=== PATIENT | female | born 1995 | race Caucasian/White ===

== ENCOUNTER 2019-05-19 11:03 | Outpatient (CLI) | payer MEDICAID, SELFPAY | END 2019-05-19 11:23 | PROVIDERS: Visit Provider Advanced Practice Midwife | DX: O76 Abnormality in fetal heart rate and rhythm complicating labor and delivery (principal) | CPT/HCPCS: 59025 ==

== ENCOUNTER 2019-06-27 14:47 | Outpatient (REF) | payer MEDICAID, SELFPAY ==
[2019-06-27 16:00] LABS: *AMPHETAMINES SCREEN URINE Negative (Negative); *BARBITURATES SCREEN URINE Negative (Negative); *BENZODIAZEPINES SCREEN URINE Negative (Negative); Cannabinoids THC Negative (Negative); Cocaine Screen,Urine Negative (Negative); METHADONE URINE SCREEN Negative (Negative); OPIATES URINE SCREEN Negative (Negative)
[2019-06-27 16:17] LABS: Tricyclic Antidepressants Negative (Negative)
[2019-07-07 13:19] LABS: Buprenorphine Negative; Norbuprenorphine Negative
== END 2019-06-27 15:07 ==
LOC: LBN 14:47
PROVIDERS: Advanced Practice Midwife; Visit Provider Advanced Practice Midwife
DX: Z34.93 Encounter for supervision of normal pregnancy, unspecified, third trimester (principal)
CPT/HCPCS: 80307

== ENCOUNTER 2019-07-04 15:10 | Outpatient (CLI) | payer MEDICAID, SELFPAY ==
[2019-07-04 15:52] LABS: HCT 38.6 % (36.0-46.0); Mean Corp. HGB Concentration 33.7 g/dL (32.0-36.0); Mean Corpuscular Hemoglobin 27.2 pg (27.0-33.0); Mean Corpuscular Volume 80.8 fL (80-95); Mean Platelet Volume 9.8 fL (8.0-11.0); Platelet Count 222 x1000/uL (130-400); RBC 4.78 m/cumm (4.00-5.20); RBC Distribution Width 12.9 % (11.7-14.6); White Blood Cell Count 9.65 k/cumm (4.4-10.8)
[2019-07-06 10:12] LABS: Syphilis Total Ab w/Reflex Nonreactive (Nonreactive)
[2019-07-07 10:42] LABS: Varicella IgG Antibody Positive
[2019-07-07 10:47] LABS: Hepatitis C Ab w Rflx HCV PCR Negative (NEGAT)
== END 2019-07-04 15:30 ==
PROVIDERS: Visit Provider Advanced Practice Midwife
DX: Z34.93 Encounter for supervision of normal pregnancy, unspecified, third trimester (principal); Z36.85 Encounter for antenatal screening for Streptococcus B; Z11.59 Encounter for screening for other viral diseases; Z01.84 Encounter for antibody response examination
CPT/HCPCS: 36415; 85027; 86787; 86803; 86850; 86900; 86901; 86780; 87081

== ENCOUNTER 2019-07-16 15:34 | Outpatient (CLI) | payer MEDICAID, SELFPAY ==
[2019-07-16 16:14] LABS: HCT 38.5 % (36.0-46.0); HGB 12.7 g/dL (12.0-15.5); Mean Corpuscular Hemoglobin 26.2 pg (27.0-33.0); Mean Corpuscular Volume 79.5 fL (80-95); Platelet Count 231 x1000/uL (130-400); RBC 4.84 m/cumm (4.00-5.20); RBC Distribution Width 12.8 % (11.7-14.6)
[2019-07-16 16:44] LABS: COMMENT (LAB VIEW ONLY) 102.84 mg/dL; PROTEIN 19.2 mg/dL; Prot/Crea Ur Ratio 0.18
[2019-07-16 17:46] LABS: ALT 14 U/L (14-59); AST 12 U/L (15-37); Albumin 2.7 g/dL (3.4-5.0); Alkaline Phosphatase 165 U/L (46-116); Anion Gap 11.6 mmol/L (3-11); BUN 10 mg/dL (7-18); Bilirubin, Total 0.2 mg/dL (0.2-1.0); CO2 23.4 mmol/L (21.0-32.0); CREATININE 0.54 mg/dL (0.55-1.02); Calcium 9.4 mg/dL (8.5-10.1); Chloride 103 mmol/L (98-107); Glucose 111 mg/dL (70-100); Sodium 138 mmol/L (136-145); Total Protein 6.4 g/dL (6.4-8.2); Uric Acid 4.2 mg/dL (2.6-6.0)
== END 2019-07-16 15:54 ==
PROVIDERS: Visit Provider Advanced Practice Midwife
DX: O14.93 Unspecified pre-eclampsia, third trimester (principal)
CPT/HCPCS: 36415; 80053; 85027; 82565; 84156; 84550

== ENCOUNTER 2019-07-21 15:05 | Outpatient (CLI) | payer MEDICAID, SELFPAY | END 2019-07-21 15:25 | PROVIDERS: Visit Provider Advanced Practice Midwife | DX: O36.8130 Decreased fetal movements, third trimester, not applicable or unspecified (principal); Z3A.39 39 weeks gestation of pregnancy | CPT/HCPCS: 59025 ==

== ENCOUNTER 2019-07-25 18:34 | Inpatient (IN) | payer MEDICAID, SELFPAY ==
[2019-07-25 20:05] LABS: ROM Plus Positive
[2019-07-25 20:16] LABS: HCT 38.3 % (36.0-46.0); HGB 12.7 g/dL (12.0-15.5); Mean Corp. HGB Concentration 33.2 g/dL (32.0-36.0); Mean Corpuscular Hemoglobin 26.3 pg (27.0-33.0); Mean Corpuscular Volume 79.5 fL (80-95); Mean Platelet Volume 10.2 fL (8.0-11.0); Platelet Count 216 x1000/uL (130-400); RBC 4.82 m/cumm (4.00-5.20); White Blood Cell Count 9.75 k/cumm (4.4-10.8)
[2019-07-25] MEDS: miSOPROStol 25 MCG TAB 50 MCG PO (20:21)
[2019-07-26] MEDS: Zolpidem 5 MG TAB 10 MG PO (02:03)
[2019-07-26] MEDS: Normal Saline Flush 10 ML SYR IVP ×2 (10:27→16:49)
[2019-07-26] MEDS: Lactated Ringers 1,000 ML 125 ML IV ×3 (12:25→17:58)
[2019-07-26] MEDS: FentaNYL/ROPIvacaine 2 mcg/ml and 0.1% 200 ML CADD Cassette EP (16:13)
[2019-07-26] MEDS: Ondansetron 4 MG/2 ML VIAL IVP (16:48)
[2019-07-26] MEDS: Terbutaline 1 MG/ML VIAL 0.25 MG SC (17:16)
[2019-07-26] MEDS: Sodium Citrate 30 ML CUP (17:30)
[2019-07-26] MEDS: Bupivacaine 0.25% Pres-Free 30 ML VIAL (18:30)
--- NOTE | 2019-07-26 18:53 | W.PM.PROGNOT ---
Date of Service Date of service: 07/26/19 Time of Service: 18:53 Assessment and Plan Assessment and plan (1) Non-reassuring electronic monitoring tracing: Status: Acute Assessment and plan: Consent for surgery was obtained. Risks reviewed with the patient. To OR for urgent primary section. Subjective Subjective Interval history since last seen: I was called to the bedside to evaluate the patient for a non-reassuring tracing. Per midwive's exam cx was 6 cm in dilatation with thick meconium. On review the tracing showed recurrent late decelerations to 90s with a 5 minute period of bradycardia with incomplete recovery. Terbutaline was administered with a subsequent heart rate of 150 with loss of variability and continued recurrent late decelerations. Urgent section was called. The patient was consented for surgery. Objective Objective Clinical Data: Abnormal lab results 07/25/19 Range/Units 20:05 MCV 79.5 L (80-95) fL MCH 26.3 L (27.0-33.0) pg Intake & Output 07/25/19 07/26/19 07/26/19 23:59 11:59 23:59 Intake Total 2191.667 / 2191.667 Output Total 825 / 825 Balance 1366.667 / 1366.667 Weight 175 lb Intake: IV 2191.667 / 2191.667 Output: Urine 225 / 225 Estimated Blood Loss 600 / 600 Other: Urine Color Yellow Urine Appearance Clear Laboratory Results WBC 9.75 k/cumm (4.4-10.8) 07/25/19 20:05 RBC 4.82 m/cumm (4.00-5.20) 07/25/19 20:05 Hgb 12.7 g/dL (12.0-15.5) 07/25/19 20:05 Hct 38.3 % (36.0-46.0) 07/25/19 20:05 MCV 79.5 fL (80-95) L 07/25/19 20:05 MCH 26.3 pg (27.0-33.0) L 07/25/19 20:05 MCHC 33.2 g/dL (32.0-36.0) 07/25/19 20:05 RDW 13.0 % (11.7-14.6) 07/25/19 20:05 Plt Count 216 x1000/uL (130-400) 07/25/19 20:05 MPV 10.2 fL (8.0-11.0) 07/25/19 20:05 Membranes Rupture Positive 07/25/19 19:40 Patient ABO/Rh A Positive 07/25/19 20:05 Antibody Screen Negative 07/25/19 20:05
[2019-07-26] MEDS: NALBUPHINE 5 MG in Normal Saline 50 ML 100 MG IVPB (19:40)
[2019-07-27] MEDS: Ketorolac 30 MG/ML VIAL IVP ×3 (00:14→11:40)
[2019-07-27] MEDS: Lactated Ringers 1,000 ML 120 ML IV (03:19)
[2019-07-27 07:23] LABS: HGB 10.8 g/dL (12.0-15.5); Mean Corp. HGB Concentration 32.7 g/dL (32.0-36.0); Mean Corpuscular Hemoglobin 26.2 pg (27.0-33.0); Mean Corpuscular Volume 80.1 fL (80-95); Mean Platelet Volume 10.2 fL (8.0-11.0); Platelet Count 209 x1000/uL (130-400); RBC 4.12 m/cumm (4.00-5.20); RBC Distribution Width 12.9 % (11.7-14.6); White Blood Cell Count 16.81 k/cumm (4.4-10.8)
--- NOTE | 2019-07-27 08:52 | W.PM.PROGNOT ---
Date of Service Date of service: 07/27/19 Time of Service: 08:52 Assessment and Plan Assessment and plan (1) Non-reassuring electronic monitoring tracing: Status: Acute Assessment and plan: Doing well. Continue routine postoperative care. Remove Fields today. May shower this evening and remove dressing at that point. (2) Status post emergency section: Status: Acute Subjective Subjective Interval history since last seen: Doing well. Pain well controlled. Not yet ambulatory. Tolerating regular diet. Minimal lochia. Objective Objective Clinical Data: Abnormal lab results 07/27/19 Range/Units 07:08 WBC 16.81 H (4.4-10.8) k/cumm Hgb 10.8 L (12.0-15.5) g/dL Hct 33.0 L (36.0-46.0) % MCH 26.2 L (27.0-33.0) pg Vital Signs Pain Level 2 07/27/19 06:07 Intake & Output 07/26/19 07/26/19 07/27/19 11:59 23:59 11:59 Intake Total 2242.167 / 2242.167 Output Total 825 / 825 Balance 1417.167 / 1417.167 Intake: IV 2242.167 / 2242.167 Output: Urine 225 / 225 Estimated Blood Loss 600 / 600 Other: Urine Color Yellow Urine Appearance Clear Laboratory Results WBC 16.81 k/cumm (4.4-10.8) H 07/27/19 07:08 RBC 4.12 m/cumm (4.00-5.20) 07/27/19 07:08 Hgb 10.8 g/dL (12.0-15.5) L 07/27/19 07:08 Hct 33.0 % (36.0-46.0) L 07/27/19 07:08 MCV 80.1 fL (80-95) 07/27/19 07:08 MCH 26.2 pg (27.0-33.0) L 07/27/19 07:08 MCHC 32.7 g/dL (32.0-36.0) 07/27/19 07:08 RDW 12.9 % (11.7-14.6) 07/27/19 07:08 Plt Count 209 x1000/uL (130-400) 07/27/19 07:08 MPV 10.2 fL (8.0-11.0) 07/27/19 07:08 Cord ABG pH Cancelled 07/26/19 18:18 Cord ABG pCO2 Cancelled 07/26/19 18:18 Cord ABG pO2 Cancelled 07/26/19 18:18 Cord ABG Base Excess Cancelled 07/26/19 18:18 Cord VBG pH Cancelled 07/26/19 18:17 Cord VBG pCO2 Cancelled 07/26/19 18:17 Cord VBG pO2 Cancelled 07/26/19 18:17 Cord VBG Base Excess Cancelled 07/26/19 18:17 Membranes Rupture Positive 07/25/19 19:40 Patient ABO/Rh A Positive 07/25/19 20:05 Antibody Screen Negative 07/25/19 20:05
--- NOTE | 2019-07-27 08:54 | ROE_ITS ---
Date of service: 07/26/19 Time of Service: 23:00 Operative Note Operative Note DATE OF PROCEDURE: 07/26/19 PRE-OP DIAGNOSIS: 1. 40 weeks gestation 2. Nonreassuring heart status POST-OP DIAGNOSIS: same PROCEDURE: Urgent primary section SURGEON: Miah Melton ASSISTING SURGEON: Jennifer Helm ANESTHESIA: spinal ESTIMATED BLOOD LOSS: 600 PATHOLOGY: none sent COMPLICATIONS: None Patient was transported to: floor Patient's condition: stable Findings: 1. Delivered a vigorous liveborn female in OP position 2. Thick meconium. Procedure Description: The patient was taken to the operating room and after adequate spinal anesthesia was achieved the patient was placed in supine posi tion with a left lateral tilt. The patient was prepped and draped in usual sterile manner. A Pfannenstiel incision was made with a #10 blade scalpel. Sharp dissection was carried down to the underlying layer fascia. The fascia was opened in the midline with a scalpel and the incision was carried laterally in either direction via stretch. The rectus muscles were divided along the linea alba with blunt digital dissection and the peritoneum was entered bluntly also. The peritoneal incision was opened via stretch. The Aneesh retractor was placed with good visualization of the lower uterine segment. The vesicouterine flap was tented up with pickups and incised with Metzenbaum scissors. The bladder flap was then created digitally. The lower uterine segment was incised in a transverse manner with and the incision was carried laterally in either direction via stretch. The was found in cephalic presentation, OP position with thick meconium. was delivered atraumatically. Mouth and nose were suctioned. The cord was clamped and cut and the infant was handed off to the awaiting straw hat brusher. The placenta was manually extracted and uterus was cleared of all clots and debris. The hysterotomy was closed with a running locked stitch of #1 chromic. A second imbricating layer of #1 chromic in a Lambert stitch completed the repair. Excellent hemostasis was noted. The vesicouterine flap was reapproximated with a running stitch of 3-0 Vicryl. The gutters were cleared of all clots and debris. The peritoneum was closed with a running stitch of 2-0 Vicryl. The subfascial space was thoroughly inspected and was noted to be hemostatic. The fascia was closed with a running stitch of 0 Vicryl. The subcutaneous tissues were closed with interrupted sutures of 3-0 Vicryl and the skin was closed with a running stitch of 4-0 Monocryl in a subcuticular layer. Dermabond was applied. Sponge, lap and needle counts were correct at the conclusion of the procedure. The procedure was concluded at this point. The patient was transferred to the floor in stable condition.
[2019-07-27] MEDS: Normal Saline Flush 10 ML SYR IVP (11:40)
[2019-07-27] MEDS: Acetaminophen 325 MG TAB 650 MG PO (17:52)
[2019-07-27] MEDS: Ibuprofen 600 MG TAB PO (17:53)
[2019-07-28] MEDS: Ibuprofen 600 MG TAB PO ×4 (00:38→17:57)
[2019-07-28] MEDS: Acetaminophen 325 MG TAB 650 MG PO ×4 (00:39→17:55)
[2019-07-28] MEDS: oxyCODONE 5 mg/Acetaminophen 325 mg TAB PO ×3 (10:19→17:56)
[2019-07-28] MEDS: Docusate Sodium 100 MG CAP PO (13:13)
== END 2019-07-28 18:05 | disposition home or self-care (01) | DRG 787 ==
PROVIDERS: Obstetrics & Gynecology; Admitting Provider Advanced Practice Midwife; Visit Provider Advanced Practice Midwife
PROC: 10D00Z1 Extraction of Products of Conception, Low, Open Approach (ICD-10-PCS; CPT 59514; principal; 2019-07-26 17:45)
DX: O76 Abnormality in fetal heart rate and rhythm complicating labor and delivery (principal); O98.32 Other infections with a predominantly sexual mode of transmission complicating childbirth; Z37.0 Single live birth; O77.0 Labor and delivery complicated by meconium in amniotic fluid; Z3A.40 40 weeks gestation of pregnancy; O48.0 Post-term pregnancy; O99.334 Smoking (tobacco) complicating childbirth; F17.210 Nicotine dependence, cigarettes, uncomplicated; Z30.09 Encounter for other general counseling and advice on contraception; A60.00 Herpesviral infection of urogenital system, unspecified
CPT/HCPCS: 59514; 36415; 82803; 84112; 85027; 86850; 86900; 86901; 99233; G0378; J0131; J1100; J1885; J2370; J2405; J2590; J3010; J3490